=== PATIENT | male | born 1995 | race Caucasian/White ===

== ENCOUNTER 2020-08-09 19:31 | Inpatient (IN) | payer BC ==
[~2020-08-09] VITALS: Ht 188 cm; Wt 108.9 kg
[2020-08-09 19:32] VITALS: BP 148/105
[2020-08-09 19:55] LABS: ABSOLUTE NEUTROPHILS 6.2 thou/uL (1.4-8.2); BASOPHILS 0.3 % (0.0-2.0); HEMATOCRIT 44.3 % (42.0-52.0); LYMPHOCYTES 29.5 % (24.0-44.0); MCH 31.4 pg (26.0-34.0); MCHC 33.9 g/dL (28.0-37.0); MCV 92.8 fL (80.0-100.0); MONOCYTES 6.6 % (1.0-8.0); PLATELET COUNT 189 thou/uL (150-400); POLYS 59.6 % (36.0-66.0); RBC 4.78 mil/uL (4.50-6.00); RDW 13.2 % (10.5-14.5); WBC 10.4 thou/uL (4.0-11.0)
[2020-08-09 20:01] LABS: CALCIUM 9.1 mg/dL (8.5-10.1); CREATININE 1.1 mg/dL (0.7-1.3); POTASSIUM 3.6 mmol/L (3.5-5.1)
[2020-08-09] MEDS ORDERED: PROAIR HFA8.5 GM INH (20:34)
[2020-08-09 20:55] VITALS: BP 110/65
[2020-08-09 21:20] VITALS: BP 109/62
[2020-08-10 00:02] VITALS: BP 122/66
[2020-08-10 03:52] VITALS: BP 108/63
[2020-08-10 07:44] VITALS: BP 136/77
[2020-08-10 10:48] VITALS: BP 117/83
[2020-08-10] MEDS ORDERED: PREDNISONE 10 M10 MG PO (13:11)
[2020-08-10 13:47] VITALS: BP 117/83
== END 2020-08-10 14:47 | disposition home or self-care (01) | DRG 203 ==
LOC: ER 19:31 → EROBS 20:48 → 3W 21:01
PROVIDERS: Emergency Medicine; ADMIT Internal Medicine; ATTEND Internal Medicine
DX: J45.901 Unspecified asthma with (acute) exacerbation (principal); Z20.822 Contact with and (suspected) exposure to COVID-19; Z79.899 Other long term (current) drug therapy
CPT/HCPCS: 10879